=== PATIENT | female | born 1940 | race Caucasian/White ===

== ENCOUNTER 2017-07-26 14:09 | Emergency (ER) | payer MEDICARE, BC ==
[~2017-07-26] VITALS: Ht 157.5 cm; Wt 59.0 kg
[2017-07-26] MEDS ORDERED: AGGRENOX 200/251 CAP PO (14:30)
[2017-07-26] MEDS ORDERED: ATORVASTATIN CA40 MG PO (14:31)
[2017-07-26] MEDS ORDERED: COQ-1030 M1 PO (14:31)
[2017-07-26] MEDS ORDERED: AMLODIPINE5 MG PO (14:31)
[2017-07-26] MEDS ORDERED: FENOFIBRATE MI134 MG PO (14:32)
[2017-07-26] MEDS ORDERED: BASAGLAR K100 UNIT/M SC (14:33)
[2017-07-26] MEDS ORDERED: CYMBALTA30 MG PO (14:34)
[2017-07-26] MEDS ORDERED: OMEPRAZOLE10 MG PO (14:34)
[2017-07-26] MEDS ORDERED: JANUVIA50 MG PO (14:35)
[2017-07-26] MEDS ORDERED: PRESERVISION AREDS 2 PO (14:35)
[2017-07-26] MEDS ORDERED: ALTACE5 MG PO (14:35)
[2017-07-26] MEDS ORDERED: TIMOLOL 0.5%5 ML OU (14:36)
[2017-07-26] MEDS ORDERED: VITAMIN B-12500 MCG PO (14:37)
[2017-07-26] MEDS ORDERED: MULTI VIT PO (14:37)
[2017-07-26] MEDS ORDERED: VITA D-1000 PO (14:37)
[2017-07-26] MEDS ORDERED: FISH OIL1000 MG PO (14:38)
[2017-07-26] MEDS ORDERED: MIRTAZAPINE ODT15 MG PO (14:39)
[2017-07-26] MEDS ORDERED: MIRTAZAPINE15 MG PO (14:39)
[2017-07-26] MEDS ORDERED: TRULICITY0.75 MG/0. (14:40)
[2017-07-26] MEDS ORDERED: NAPROXEN DR500 MG PO (15:13)
[2017-07-26] MEDS ORDERED: TRAMADOL HYDROC50 MG PO (15:13)
[2017-07-26 15:34] VITALS: BP 154/74
== END 2017-07-26 15:34 | disposition home or self-care (01) ==
LOC: ED 14:09
DX: S80.02XA Contusion of left knee, initial encounter (principal); E11.9 Type 2 diabetes mellitus without complications; I10 Essential (primary) hypertension; E78.00 Pure hypercholesterolemia, unspecified; W01.190A Fall on same level from slipping, tripping and stumbling with subsequent striking against furniture, initial encounter; Y92.003 Bedroom of unspecified non-institutional (private) residence as the place of occurrence of the external cause; Z86.73 Personal history of transient ischemic attack (TIA), and cerebral infarction without residual deficits